=== PATIENT | male | born 1965 | race Caucasian/White ===

== ENCOUNTER 2018-08-31 12:11 | Inpatient (IN) | payer OTHER ==
[2018-08-31 13:10] VITALS: BMI 24.4
--- NOTE | 2018-08-31 15:58 | HP ---
COWS - Scale Resting Pulse: 0= [place] 80 or Below Sweatin= Chills/Flushing Restless Observation: 1= Difficult to Sit Still Pupil Size: 0= Normal to Room Light Bone or Joint Aches: 1= Mild Discomfort Runny Nose/ Eye Tearin= Runny Nose/Eyes GI Upset > 30mins: 2= Nausea/Diarrhea Tremor Observation: 2= Slight Tremor Visible Yawning Observation: 1= 1-2x During Session Anxiety or Irritability: 2=Irritable/Anxious Goose Flesh Skin: 0=Smooth Skin COWS Score: 12 CIWA Score - Admission Criteria [facility] Guidelines: Admission for Medically Managed Detox: Requires at least one of the followin. CIWA greater than 12 2. Seizures within the past 24 hours 3. Delirium tremens within the past 24 hours 4. Hallucinations within the past 24 hours 5. Acute intervention needed for co occurring medical disorder 6. Acute intervention needed for co occurring psychiatric disorder 7. Severe withdrawal that cannot be handled at a lower level of care (continued vomiting, continued diarrhea, abnormal vital signs) requiring intravenous medication and/or fluids 8. Admission ROS [facility] - HPI Chief Complaint: "I need help to stop heroin" Allergies/Adverse Reactions: Allergies Allergy/AdvReac Type Severity Reaction Status Date / Time iodine Allergy Severe Difficulty Verified 08/31/18 13:04 Breathing History of Present Illness: 53 year old legally blind man here seeking detox from heroin. This is patient's first visit here and the first time he will be seeking detox. He stated he started using drugs Mar 2018 s/p of his fiancee, states he is also homeless. Pt denies previous nor current SI/HI. Denies any medical hx Confidential Drug Utilization Report Search Terms: gaurav bradley, 05/02/1964 Search Date: 08/31/2018 03:59:38 PM The Drug Utilization Report below displays all of the controlled substance prescriptions, if any, that your patient has filled in the last twelve months. The information displayed on this report is compiled from pharmacy submissions to the Department, and accurately reflects the information as submitted by the pharmacies. This report was requested by: Za Du | Reference #: [id number] There are no results for the search terms that you entered. Exam Limitations: No Limitations - Ebola screening Have you traveled outside of the country in the last 21 days: No Have you had contact with anyone from an Ebola affected area: No - Review of Systems Constitutional: Loss of Appetite, Night Sweats, Changes in sleep EENT: reports: Other (Pt is legally blind; does not use assistive device and states) Respiratory: reports: No Symptoms reported Cardiac: reports: No Symptoms Reported GI: reports: Diarrhea : reports: No Symptoms Reported Musculoskeletal: reports: Back Pain, Joint Pain Integumentary: reports: No Symptoms Reported Neuro: reports: Headache (sometimes) Endocrine: reports: No Symptoms Reported Hematology: reports: No Symptoms Reported Psychiatric: reports: No Sypmtoms Reported Other Systems: Reviewed and Negative Patient History - Patient Medical History Hx Anemia: No Hx Asthma: No Hx Chronic Obstructive Pulmonary Disease (COPD): No Hx Cancer: No Hx Cardiac Disorders: No Hx Congestive Heart Failure: No Hx Hypertension: No Hx Hypercholesterolemia: Yes (Past med hx) Hx Pacemaker: No HX Cerebrovascular Accident: No Hx Seizures: No Hx Dementia: No Hx Diabetes: No Hx Gastrointestinal Disorders: Yes (Acid reflux) Hx Liver Disease: No Hx Genitourinary Disorders: No Hx Sexually Transmitted Disorders: Yes (syphillis in the ) Hx Renal Disease (ESRD): No Hx Thyroid Disease: No Hx Human Immunodeficiency Virus (HIV): No (Denies) Hx Hepatitis C: Yes (Not treated) Hx Depression: No Hx Suicide Attempt: No (Denies) Hx Bipolar Disorder: No Hx Schizophrenia: No - Smoking Cessation Smoking history: Current every day smoker Aproximately how many cigarettes per day: 20 Initiated information on smoking cessation: Yes 'Breaking Loose' booklet given: 08/31/18 - Substances abused Heroin Substance route: Inhalation Frequency: Daily Amount used: 1-1 1/2 buddle bag Age of first use: 52 Date of last use: 08/31/18 Family Disease History - Family Disease History Family Disease History: Diabetes: Grandparent (HTN, DM, asthma), Heart Disease: Grandparent, [place]: Father (lung), Respiratory: Grandparent, Mother (asthma), Other : Sister (Visually impaired) Admission Physical Exam [facility]HS - Vital Signs Vital Signs: Vital Signs - 24 hr 08/31/18 13:02 Temperature 97.5 F L Pulse Rate 72 Respiratory 16 Rate Blood Pressure 130/78 - Physical General Appearance: Yes: Mild Distress HEENTM: Yes: Other (legally blind) Respiratory: Yes: Lungs Clear, Normal Breath Sounds, No Respiratory Distress Neck: Yes: No masses,lesions,Nodules, Trachea in good position Breast: Yes: Breast Exam Deferred Cardiology: Yes: Regular Rhythm, Regular Rate Abdominal: Yes: Normal Bowel Sounds, Non Tender, Soft Genitourinary: Yes: Within Normal Limits Back: Yes: Normal Inspection Musculoskeletal: Yes: full range of Motion, Gait Steady Extremities: Yes: Normal Capillary Refill, Normal Inspection Neurological: Yes: Fully Oriented, Alert, Motor Strength 5/5 Integumentary: Yes: Normal Color, Warm Lymphatic: Yes: Within Normal Limits - Diagnostic (1) Opioid dependence, uncomplicated Current Visit: Yes Status: Acute (2) Cocaine abuse Current Visit: Yes Status: Acute (3) Marijuana abuse Current Visit: Yes Status: Chronic (4) Nicotine dependence Current Visit: Yes Status: Chronic (5) Hep C w/ coma, chronic Current Visit: Yes Status: Chronic Cleared for Admission [facility] - Detox or Rehab [facility] Level of Care: Medically Managed Detox Regimen/Protocol: Methadone Breathalyzer - Breathalyzer Breathalyzer: 0 Urine Drug Screen - Test Device Lot number: [id number] Expiration date: 03/28/20 - Control Is test valid?: Yes - Results Drug screen NEGATIVE: No Urine drug screen results: THC-Marijuana, CHRISTELLE-Cocaine, MOP-Opiates Inpatient Rehab Admission - Rehab Decision to Admit Inpatient rehab admission?: No
[2018-08-31] MEDS ORDERED: MAGNESIUM CITRATE 300 ML BOTTLE PO PRN (16:29)
[2018-08-31] MEDS ORDERED: ACETAMINOPHEN 325 MG TABLET (FP) PO PRN ×2 (16:29)
[2018-08-31] MEDS ORDERED: BISMUTH SUBSALICYLATE 524 MG/30 ML UD PO PRN (16:29)
[2018-08-31] MEDS ORDERED: MENTHOL/PHENOL 1 EACH UD MM PRN (16:29)
[2018-08-31] MEDS ORDERED: IBUPROFEN 400 MG TABLET (FP) PO PRN (16:29)
[2018-08-31] MEDS ORDERED: NICOTINE POLACRILEX 2 MG GUM BUC PRN (16:29)
[2018-08-31] MEDS ORDERED: MAGNESIUM HYDROX 2400MG/30ML ORAL SUSPENSION 30 ML CUP PO PRN (16:29)
[2018-08-31] MEDS ORDERED: ONDANSETRON *ODT* 4 MG TABLET SL PRN (16:29)
[2018-08-31] MEDS ORDERED: MAG HYDROX/AL HYDROX/SIMETH 30 ML UNIT-DOSE CUP PO PRN (16:29)
[2018-08-31] MEDS ORDERED: METHADONE HCL 10 MG TABLET PO ONE (16:31)
[2018-08-31] MEDS: cloNIDine HCL 0.1 MG TABLET PO PRN (17:39)
[2018-08-31] MEDS: NICOTINE 21 MG/24 HOURS TOPICAL PATCH TD SCH (17:42)
[2018-08-31] MEDS: THIAMINE HCL 100 MG TABLET (FP) PO SCH (22:08)
[2018-08-31] MEDS: METHOCARBAMOL 500 MG TABLET PO PRN (22:09)
[2018-08-31] MEDS: MELATONIN 5 MG TABLETS PO PRN (22:10)
[2018-08-31] MEDS ORDERED: METHADONE HCL 10 MG TABLET (FOR DETOX USE ONLY) PO ONE (23:00)
[2018-09-01] MEDS: cloNIDine HCL 0.1 MG TABLET PO PRN ×2 (01:23→14:22)
[2018-09-01] MEDS ORDERED: METHADONE HCL 5 MG TABLET (FOR DETOX USE ONLY) PO ONE (10:00)
--- NOTE | 2018-09-01 10:05 | PN ---
[facility] COWS - Scale Resting Pulse: 0= [place] 80 or Below Sweatin= Chills/Flushing Restless Observation: 1= Difficult to Sit Still Pupil Size: 1= Pupils >than Normal Bone or Joint Aches: 1= Mild Discomfort Runny Nose/ Eye Tearin= Nasal Congestion GI Upset > 30mins: 1= Stomach Cramp Tremor Observation of Outstretched Hands: 1= Tremor [place], Not Seen Yawning Observation: 1= 1-2x During Session Anxiety or Irritability: 2=Irritable/Anxious Goose Flesh Skin: 0=Smooth Skin COWS Score: 10 BHS Progress Note (SOAP) Subjective: anxiety body aches doing ok with methadone regimen Objective: 09/01/18 10:06 Vital Signs Temperature 97.6 F 09/01/18 09:08 Pulse Rate 70 09/01/18 09:08 Respiratory Rate 18 09/01/18 09:08 Blood Pressure 109/59 L 09/01/18 09:08 O2 Sat by Pulse Oximetry (%) 09/01/18 10:06 lab pending Assessment: 09/01/18 10:06 opiate withdrawal sx Plan: continue opiate detox
[2018-09-01] MEDS: PRENATAL VITAMINS W/ FOLIC ACID TABLET (FP) PO SCH (10:14)
[2018-09-01] MEDS: NICOTINE 21 MG/24 HOURS TOPICAL PATCH TD SCH (10:15)
[2018-09-01 10:19] LABS: HEMATOCRIT 38.8 % (35.4-49); MCH 28.4 pg (25.7-33.7); MCHC 33.5 g/dl (32.0-35.9); MEAN CELL VOLUME 84.7 fl (80-96); MEAN PLT VOLUME 8.7 fl (7.5-11.1); PLATELET COUNT 119 K/MM3 (134-434); RBC 4.58 M/mm3 (4.00-5.60); RDW 14.4 % (11.9-15.9); WHITE BLOOD COUNT 6.9 K/mm3 (4.0-10.0)
[2018-09-01 10:25] LABS: ALBUMIN 2.9 g/dl (3.4-5.0); ALK PHOS 100 U/L (45-117); ANION GAP 6 MMOL/L (8-16); BILIRUBIN,TOTAL 0.2 mg/dL (0.2-1); BLOOD UREA NITROGEN 17 mg/dL (7-18); CALCIUM 8.5 mg/dL (8.5-10.1); CHLORIDE 106 mmol/L (98-107); CO2 27 mmol/L (21-32); CREATININE 0.6 mg/dL (0.55-1.3); GLUCOSE,RANDOM 115 mg/dL (74-106); POTASSIUM 3.6 mmol/L (3.5-5.1); SGOT/AST 36 U/L (15-37); SGPT/ALT 53 U/L (13-61); SODIUM 139 mmol/L (136-145); TOT PROT 6.2 g/dl (6.4-8.2)
[2018-09-01] MEDS: METHOCARBAMOL 500 MG TABLET PO PRN (18:24)
[2018-09-01] MEDS: clonazePAM 0.5 MG TABLET PO PRN (18:26)
[2018-09-01] MEDS: MELATONIN 5 MG TABLETS PO PRN (22:14)
[2018-09-01] MEDS: THIAMINE HCL 100 MG TABLET (FP) PO SCH (22:14)
[2018-09-02] MEDS: clonazePAM 0.5 MG TABLET PO PRN (05:45)
[2018-09-02 09:12] VITALS: BP 109/58; PULSE 81; TEMP 97.1
[2018-09-02] MEDS ORDERED: METHADONE HCL 10 MG TABLET (FOR DETOX USE ONLY) PO ONE (10:00)
[2018-09-02] MEDS: NICOTINE 21 MG/24 HOURS TOPICAL PATCH TD SCH (10:22)
[2018-09-02] MEDS: PRENATAL VITAMINS W/ FOLIC ACID TABLET (FP) PO SCH (10:22)
--- NOTE | 2018-09-02 10:48 | DS ---
[facility] Detox Discharge Summary Admission Date: 08/31/18 Discharge Date: 09/02/18 - History Present History: Opioid Dependence Additional Comments: 53 years old male admitted on 08/31/18 for opiate withdrawal stabilization feeling better today preferring to begin opiate rehab today discuss medication assisted maintenance treatment program alert no acute distress denies suicidal ideation Pertinent Past History: bring in medication list and lab report to aftercare appointment - Physical Exam Results Vital Signs: Vital Signs Temperature 97.1 F L 09/02/18 09:12 Pulse Rate 81 09/02/18 09:12 Respiratory Rate 18 09/02/18 09:12 Blood Pressure 109/58 L 09/02/18 09:12 O2 Sat by Pulse Oximetry (%) Pertinent Admission Physical Exam Findings: opiate withdrawal sx Laboratory Last Values WBC 6.9 K/mm3 (4.0-10.0) 09/01/18 07:00 RBC 4.58 M/mm3 (4.00-5.60) 09/01/18 07:00 Hgb 13.0 GM/dL (11.7-16.9) 09/01/18 07:00 Hct 38.8 % (35.4-49) 09/01/18 07:00 MCV 84.7 fl (80-96) 09/01/18 07:00 MCH 28.4 pg (25.7-33.7) 09/01/18 07:00 MCHC 33.5 g/dl (32.0-35.9) 09/01/18 07:00 RDW 14.4 % (11.9-15.9) 09/01/18 07:00 Plt Count 119 K/MM3 (134-434) L 09/01/18 07:00 MPV 8.7 fl (7.5-11.1) 09/01/18 07:00 Sodium 139 mmol/L (136-145) 09/01/18 07:00 Potassium 3.6 mmol/L (3.5-5.1) 09/01/18 07:00 Chloride 106 mmol/L (98-107) 09/01/18 07:00 Carbon Dioxide 27 mmol/L (21-32) 09/01/18 07:00 Anion Gap 6 MMOL/L (8-16) L 09/01/18 07:00 BUN 17 mg/dL (7-18) 09/01/18 07:00 Creatinine 0.6 mg/dL (0.55-1.3) 09/01/18 07:00 Creat Clearance w eGFR 139.88 (>60) 09/01/18 07:00 Random Glucose 115 mg/dL (74-106) H 09/01/18 07:00 Calcium 8.5 mg/dL (8.5-10.1) 09/01/18 07:00 Total Bilirubin 0.2 mg/dL (0.2-1) 09/01/18 07:00 AST 36 U/L (15-37) 09/01/18 07:00 ALT 53 U/L (13-61) 09/01/18 07:00 Alkaline Phosphatase 100 U/L (45-117) 09/01/18 07:00 Total Protein 6.2 g/dl (6.4-8.2) L 09/01/18 07:00 Albumin 2.9 g/dl (3.4-5.0) L 09/01/18 07:00 RPR Titer Nonreactive (NONREACTIVE) 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 - Treatment Hospital Course: Detox Protocol Followed, Detoxed Safely, Responded well, Discharged Condition Good, Rehab Referral Accepted Patient has Accepted a Rehab Referral to: medication assisted maintenance treatment program - Medication Discharge Medications: Ambulatory Orders NK [No Known Home Medication] 08/31/18 - Diagnosis (1) Opioid dependence, uncomplicated Status: Acute (2) Hep C w/ coma, chronic Status: Chronic (3) Nicotine dependence Status: Acute Qualifiers: Nicotine product type: cigarettes Substance use status: in withdrawal Qualified Code(s): F17.213 - Nicotine dependence, cigarettes, with withdrawal - AMA Did Patient Leave Against Medical Advice: No
[2018-09-03] MEDS ORDERED: METHADONE HCL 5 MG TABLET (FOR DETOX USE ONLY) PO ONE (06:00)
== END 2018-09-02 11:27 | disposition home or self-care (01) | DRG 773 ==
LOC: YASAS 12:11 → Y3N 16:52
PROVIDERS: ADMIT Surgery; ATTEND Surgery
PROC: HZ2ZZZZ Detoxification Services for Substance Abuse Treatment (ICD-10-PCS; principal; 2018-08-31)
DX: F11.23 Opioid dependence with withdrawal (principal); F14.10 Cocaine abuse, uncomplicated; F12.10 Cannabis abuse, uncomplicated; F17.213 Nicotine dependence, cigarettes, with withdrawal; K21.9 Gastro-esophageal reflux disease without esophagitis; B18.2 Chronic viral hepatitis C
CPT/HCPCS: 36415; 71046-TC-FY; 80053; 85027; 86593; J0735; Q0162

== ENCOUNTER 2020-04-10 12:49 | Emergency (ER) | payer OTHER ==
[2020-04-10 13:03] VITALS: BMI 26.7
[2020-04-10 14:16] LABS: BASO % 1.1 % (0-2.0); EOS % 2.9 % (0-4.5); HEMOGLOBIN 13.7 GM/dL (11.7-16.9); LYMPH % 26.3 % (8-40); MCHC 33.5 g/dl (32.0-35.9); MEAN CELL VOLUME 83.6 fl (80-96); MEAN PLT VOLUME 7.9 fl (7.5-11.1); MONO % 6.6 % (3.8-10.2); NEUT % 63.1 % (42.8-82.8); PLATELET COUNT 192 K/MM3 (134-434); RDW 13.9 % (11.9-15.9); WHITE BLOOD COUNT 10.2 K/mm3 (4.0-10.0)
[2020-04-10 14:29] LABS: POTASSIUM 4.1 mmol/L (3.5-5.1)
[2020-04-10 14:31] LABS: ALBUMIN 3.4 g/dl (3.4-5.0); CALCIUM 8.5 mg/dL (8.5-10.1)
[2020-04-10 14:32] LABS: BLOOD UREA NITROGEN 13.4 mg/dL (7-18)
[2020-04-10 14:34] LABS: CREATININE 0.7 mg/dL (0.55-1.3)
[2020-04-10 14:36] LABS: BILIRUBIN,TOTAL 0.6 mg/dL (0.2-1); TOT PROT 7.5 g/dl (6.4-8.2)
[2020-04-10] MEDS ORDERED: PREGABALIN 25 MG CAPSULE PO ONE (16:35)
[2020-04-10] MEDS ORDERED: PREGABALIN 25 MG CAPSULE ONE (16:41)
[2020-04-10 17:14] VITALS: BP 147/72; PULSE 87; TEMP 98.1
== END 2020-04-10 17:00 | disposition home or self-care (01) ==
LOC: JER 12:49
DX: M77.31 Calcaneal spur, right foot (principal); M79.2 Neuralgia and neuritis, unspecified
CPT/HCPCS: 36415; 73630-TC-RT-FY; 80053; 85025; 93971-TC; 99285-25

== ENCOUNTER 2020-12-31 08:16 | Inpatient (IN) | payer OTHER ==
[2020-12-31 02:44] VITALS: BMI 24.4
[2020-12-31] MEDS ORDERED: NALOXONE HCL 0.4 MG/ML VIAL IM PRN (08:46)
[2020-12-31] MEDS ORDERED: BISMUTH SUBSALICYLATE 524 MG/30 ML PO PRN (08:46)
[2020-12-31] MEDS ORDERED: methaDONE HCL 10 MG TABLET (FOR DETOX USE ONLY) PO ONE (08:46)
[2020-12-31] MEDS ORDERED: NICOTINE 10 MG CARTRIDGE (INHALER) IH PRN (08:46)
[2020-12-31] MEDS ORDERED: ACETAMINOPHEN 325 MG TABLET (FP) PO PRN (08:46)
[2020-12-31] MEDS ORDERED: MENTHOL/PHENOL 1 EACH UD MM PRN (08:46)
[2020-12-31] MEDS ORDERED: MAG HYDROX/AL HYDROX/SIMETH 30 ML UNIT-DOSE CUP PO PRN (08:46)
[2020-12-31] MEDS ORDERED: MAGNESIUM CITRATE 300 ML BOTTLE PO PRN (08:46)
[2020-12-31] MEDS ORDERED: MAGNESIUM HYDROX 2400MG/30ML ORAL SUSPENSION 30 ML CUP PO PRN (08:46)
[2020-12-31] MEDS ORDERED: ASPIRIN 81 MG CHEWABLE TABLETS ONE (11:39)
[2020-12-31] MEDS ORDERED: methaDONE HCL 10 MG TABLET (FOR DETOX USE ONLY) ONE (11:39)
[2020-12-31] MEDS: ASPIRIN COATED 81 MG TABLET.EC PO SCH (11:44)
[2020-12-31] MEDS: PRENATAL VITAMINS W/ FOLIC ACID TABLET (FP) PO SCH (13:05)
[2020-12-31] MEDS: IBUPROFEN 400 MG TABLET (FP) PO PRN (14:57)
[2020-12-31] MEDS: METHOCARBAMOL 500 MG TABLET PO PRN (18:01)
[2020-12-31] MEDS: cloNIDine HCL 0.1 MG TABLET PO PRN (22:09)
[2020-12-31] MEDS: MELATONIN 5 MG TABLETS PO SCH (22:09)
[2020-12-31] MEDS: THIAMINE HCL 100 MG TABLET (FP) PO SCH (22:09)
[2021-01-01] MEDS ORDERED: methaDONE HCL 10 MG TABLET (FOR DETOX USE ONLY) ONE (09:01)
[2021-01-01] MEDS: PRENATAL VITAMINS W/ FOLIC ACID TABLET (FP) PO SCH (10:25)
[2021-01-01] MEDS: ASPIRIN COATED 81 MG TABLET.EC PO SCH (10:25)
[2021-01-01] MEDS: IBUPROFEN 400 MG TABLET (FP) PO PRN (15:17)
[2021-01-01] MEDS: MELATONIN 5 MG TABLETS PO SCH (22:11)
[2021-01-01] MEDS: THIAMINE HCL 100 MG TABLET (FP) PO SCH (22:11)
[2021-01-01] MEDS: cloNIDine HCL 0.1 MG TABLET PO PRN (22:12)
[2021-01-01] MEDS: clonazePAM 0.5 MG ODT TABLETS SL PRN (22:13)
[2021-01-02] MEDS ORDERED: methaDONE HCL 10 MG TABLET (FOR DETOX USE ONLY) PO ONE (10:00)
[2021-01-02] MEDS: METHOCARBAMOL 500 MG TABLET PO PRN (10:15)
[2021-01-02] MEDS: ASPIRIN COATED 81 MG TABLET.EC PO SCH (10:15)
[2021-01-02] MEDS: PRENATAL VITAMINS W/ FOLIC ACID TABLET (FP) PO SCH (10:15)
[2021-01-02] MEDS: IBUPROFEN 400 MG TABLET (FP) PO PRN ×2 (12:21→22:02)
[2021-01-02 18:32] LABS: BASO % 0.8 % (0-2.0); EOS % 4.1 % (0-4.5); LYMPH % 38.9 % (8-40); MCH 26.1 pg (25.7-33.7); MCHC 33.3 g/dl (32.0-35.9); MEAN CELL VOLUME 78.4 fl (80-96); MEAN PLT VOLUME 8.9 fl (7.5-11.1); MONO % 7.4 % (3.8-10.2); NEUT % 48.8 % (42.8-82.8); PLATELET COUNT 154 10^3/uL (134-434); RBC 4.59 M/mm3 (4.00-5.60); RDW 16.9 % (11.9-15.9); WHITE BLOOD COUNT 5.7 K/mm3 (4.0-10.0)
[2021-01-02 18:38] LABS: ALBUMIN 3.4 g/dl (3.4-5.0); BLOOD UREA NITROGEN 11.6 mg/dL (7-18); CALCIUM 8.7 mg/dL (8.5-10.1)
[2021-01-02 18:41] LABS: CREATININE 0.7 mg/dL (0.55-1.3)
[2021-01-02 18:43] LABS: BILIRUBIN,TOTAL 0.3 mg/dL (0.2-1); TOT PROT 7.3 g/dl (6.4-8.2)
[2021-01-02] MEDS: MELATONIN 5 MG TABLETS PO SCH (22:01)
[2021-01-02] MEDS: THIAMINE HCL 100 MG TABLET (FP) PO SCH (22:01)
[2021-01-02] MEDS: clonazePAM 0.5 MG ODT TABLETS SL PRN (22:03)
[2021-01-03] MEDS: METHOCARBAMOL 500 MG TABLET PO PRN (02:34)
[2021-01-03] MEDS: ACETAMINOPHEN 325 MG TABLET (FP) PO PRN (02:34)
[2021-01-03] MEDS ORDERED: methaDONE HCL 10 MG TABLET (FOR DETOX USE ONLY) ONE (09:38)
[2021-01-03] MEDS: PRENATAL VITAMINS W/ FOLIC ACID TABLET (FP) PO SCH (10:02)
[2021-01-03] MEDS: ASPIRIN COATED 81 MG TABLET.EC PO SCH (10:02)
[2021-01-03] MEDS: diazePAM 5 MG TABLET PO PRN ×2 (10:03→22:11)
[2021-01-03] MEDS: THIAMINE HCL 100 MG TABLET (FP) PO SCH (22:10)
[2021-01-03] MEDS: MELATONIN 5 MG TABLETS PO SCH (22:10)
[2021-01-04] MEDS: ACETAMINOPHEN 325 MG TABLET (FP) PO PRN ×2 (03:48→22:10)
[2021-01-04] MEDS ORDERED: methaDONE HCL 10 MG TABLET (FOR DETOX USE ONLY) PO ONE (10:00)
[2021-01-04] MEDS: ASPIRIN COATED 81 MG TABLET.EC PO SCH (10:20)
[2021-01-04] MEDS: PRENATAL VITAMINS W/ FOLIC ACID TABLET (FP) PO SCH (10:20)
[2021-01-04] MEDS: IBUPROFEN 400 MG TABLET (FP) PO PRN (10:21)
[2021-01-04] MEDS: THIAMINE HCL 100 MG TABLET (FP) PO SCH (22:07)
[2021-01-04] MEDS: MELATONIN 5 MG TABLETS PO SCH (22:07)
[2021-01-04] MEDS: METHOCARBAMOL 500 MG TABLET PO PRN (22:09)
[2021-01-04] MEDS: diazePAM 5 MG TABLET PO PRN (22:09)
[2021-01-05] MEDS: METHOCARBAMOL 500 MG TABLET PO PRN (05:36)
[2021-01-05] MEDS: ACETAMINOPHEN 325 MG TABLET (FP) PO PRN (05:36)
[2021-01-05 06:46] VITALS: PULSE 76
[2021-01-05 09:29] VITALS: BP 141/94; TEMP 97.1
[2021-01-05] MEDS: PRENATAL VITAMINS W/ FOLIC ACID TABLET (FP) PO SCH (10:24)
[2021-01-05] MEDS: ASPIRIN COATED 81 MG TABLET.EC PO SCH (10:24)
[2021-01-05] MEDS: IBUPROFEN 400 MG TABLET (FP) PO PRN (10:26)
== END 2021-01-05 11:32 | disposition other institution (70) | DRG 773 ==
LOC: YASAS 08:16 → Y3N 11:47
PROVIDERS: ADMIT Allergy & Immunology; ATTEND Allergy & Immunology
PROC: HZ2ZZZZ Detoxification Services for Substance Abuse Treatment (ICD-10-PCS; principal; 2020-12-31)
DX: F11.23 Opioid dependence with withdrawal (principal); F17.210 Nicotine dependence, cigarettes, uncomplicated; M79.2 Neuralgia and neuritis, unspecified
CPT/HCPCS: 36415; 80053; 85025; 86780; 93005; 93010; C9803; J0735; U0003; U0005